=== PATIENT | male | born 1940 | race Caucasian/White ===

== ENCOUNTER 2017-04-11 22:04 | Emergency (ER) | payer MEDICARE, BC ==
[~2017-04-11] VITALS: Ht 175.3 cm; Wt 63.0 kg
[2017-04-11] MEDS ORDERED: ALFUZOSIN HCL 10 MG TAB (UROXATRAL) PO ONE (22:30)
[2017-04-11] MEDS ORDERED: TAMS0.4C98 PO (22:32)
--- NOTE | 2017-04-11 22:32 | ED General ---
General Chief Complaint: General Problems/Pain Stated Complaint: MEDICATION REFILL/FLOMAX Nursing Triage Note: Pt. advises that he and his are in town from [place] and that he left home without his flowmax medication. Pt. is needing a medication refill to get him through until they return home. Nursing Sepsis Screen: No Definite Risk Allergies and Home Medications Allergies Coded Allergies: No Known Drug Allergies (Unverified , 04/11/17) Past Aglavkv-Sktbwa-Euzypb Hx Patient Social History Alcohol Use: Occasionally Uses Recreational Drug Use: No Smoking Status: Current Everyday Smoker Type Used: Cigarettes Recent Foreign Travel: No Contact w/Someone Who Travel: No Recent Infectious Disease Expo: No Recent Hopitalizations: No Seasonal Allergies Seasonal Allergies: No Surgeries Surgeries: Cardiac Cardiovascular Cardiac Disorders: Aneurysm Physical Exam Vital Signs Vital Sign - Last 12Hours 04/11/17 22:24 Temp 98.4 Pulse 85 Resp 16 B/P (MAP) 150/82 Pulse Ox 98 O2 Delivery Room Air Capillary Refill : Less Than 3 Seconds Progress/Results/Core Measures Results/Orders Vital Signs/I&O Vital Sign - Last 12Hours 04/11/17 22:24 Temp 98.4 Pulse 85 Resp 16 B/P (MAP) 150/82 Pulse Ox 98 O2 Delivery Room Air Blood Pressure Mean: 104 Departure Impression Impression: Primary Impression: Encounter for medication refill Disposition: 01 HOME, SELF-CARE Condition: Improved Departure-Patient Inst. Decision time for Depature: 22:30 Referrals: NO,LOCAL PHYSICIAN (PCP/Family) Primary Care Physician Patient Instructions: NO INSTRUCTIONS GIVEN Add. Discharge Instructions: All discharge instructions reviewed with patient and/or family. Voiced understanding. Continue usual home medications. Continue usual diet and activities. Follow-up with your family practitioner for recheck at your next scheduled appointment or sooner if needed. Return in the emergency department for inability to urinate, difficulty with urination, blood in the urine, fever, or any other concerns. Scripts Tamsulosin HCl (Flomax) 0.4 Mg Cap 0.4 MG PO DAILY, #10 CAP 0 Refills Prov: SCARLET RICHTER 04/11/17 SCARLET RICHTER Apr 11, 2017 22:32
[2017-04-11 22:36] VITALS: BP 150/82
== END 2017-04-11 22:37 | disposition home or self-care (01) ==
LOC: ER 22:07
DX: Z76.0 Encounter for issue of repeat prescription (principal); F17.210 Nicotine dependence, cigarettes, uncomplicated
CPT/HCPCS: 99281